=== PATIENT | female | born 1965 | race Caucasian/White ===

== ENCOUNTER → 2016-11-10 | Outpatient (CLI) | payer MEDICAID ==
[~2016-11-10] MED LIST: ALBU2.5V13 NEB; ALPR0.5T6 PO; AMLO5TAB4 PO; BACL10TA PO; BENZ1LOZ37 MM; CITA40TA5 PO; CLOB15OI TP; ESZO1TAB6 PO; ESZO3TAB9 PO; GADOBUTROL 7.5 MMOL/7.5 ML VIAL IV ONE; LISI1TAB3 PO; NICO1PAT21 TD; OXYB5TAB7 PO; OXYC30TA PO; OXYC30TA64 PO; PREG200C PO; ROFL500T PO
--- NOTE | 2016-11-10 14:22 | KCIC ---
PROCEDURE MRI of the lumbar spine without and with contrast 11/10/2016 HISTORY Chronic low back pain. TECHNIQUE Unenhanced T1 weighted, T2 weighted and inversion recovery sagittal and T1 weighted and T2 weighted axial images of the lumbar spine were obtained. After the intravenous administration of 14 cc of Gadavist, enhanced T1 weighted sagittal and axial images of the lumbar spine were obtained. FINDINGS Comparison study is dated 05/30/2016. Very mild S-shaped curvature of the thoracolumbar spine is seen. Minimal anterolisthesis of L4 in relation to L5 is seen. Degenerative signal changes are seen involving all of the discs of the lower thoracic and throughout the lumbar spine. Degenerative signal changes are seen within the marrow surrounding these discs. The conus medullaris is normal in position and signal characteristics. No area of abnormal contrast enhancement is seen. The patient reports a history of lumbar spine surgery. It is unclear from these images what surgery was performed and at what level. At the T10-11 disc space there is a mild generalized disc bulge. Superimposed on this disc bulge is a right paracentral focal disc protrusion. This measures 3 millimeters in AP diameter. Degenerative changes are seen involving the facet joints bilaterally. These findings result in mild right-sided central spinal canal stenosis. The neural foramina are not entirely included on this study. At the T11-12 disc space there is a mild generalized disc bulge. Superimposed on this disc bulge is a right paracentral focal disc protrusion. This measures 2.5 millimeters in AP diameter degenerative changes are seen involving the facet joints bilaterally. These findings efface the anterior CSF without resulting in significant central spinal canal or neural foraminal stenosis. At the T12-L1 disc space there is mild to moderate generalized disc bulge. This is eccentric to the right. Superimposed on the disc bulge is a right paracentral/lateral disc osteophyte complex. This measures 5 millimeters in AP diameter degenerative changes are seen involving the facet joints bilaterally. These findings when combined result in mild to moderate right greater than left central spinal canal stenosis. Mild right neural foraminal stenosis is seen. The left neural foramina is patent. At the L1-2 disc space there is mild to moderate generalized disc bulge. This is eccentric to the right. Degenerative changes are seen involving the facet joints bilaterally. There is prominence of the posterior epidural fat. These findings when combined result in mild to moderate central spinal canal stenosis. Mild bilateral neural foraminal stenosis is seen. At the L2-3 disc space there is mild generalized disc bulge. Degenerative changes are seen involving the facet joints bilaterally. There is mild ligamentum flavum hypertrophy bilaterally. These findings when combined result in mild central spinal canal stenosis. No neural foraminal stenosis is seen. At the L3-4 disc space there is a mild to moderate generalized disc bulge. This is eccentric to the left. Degenerative changes are seen involving the facet joints bilaterally. There is mild ligamentum flavum hypertrophy. These findings when combined result in mild left greater than right central spinal canal stenosis. Mild left greater than right neural foraminal stenosis is seen. At the L4-5 disc space there is mild to moderate generalized disc bulge. Degenerative changes are seen involve the facet joints bilaterally. There is moderate ligamentum flavum hypertrophy bilaterally. There is prominence of the posterior epidural fat. These findings when combined result in mild to moderate central spinal canal stenosis. Very mild bilateral neural foraminal stenosis is seen. At the L5-S1 disc space there is a mild generalized disc bulge. Degenerative changes are seen involving the facet joints bilaterally. These findings do not result in significant central spinal canal or neural foraminal stenosis. Since the previous examination there has been no significant interval change. IMPRESSION Degenerative changes are seen throughout the lower thoracic and throughout the lumbar spine. These findings result in multilevel central spinal canal and neural foraminal stenosis of varying severity as outlined above. Electronically signed by: Alvarez Lopez MD (Nov 10, 2016 14:21:27)
== END | disposition home or self-care (01) ==
LOC: KCIC MRI 10:59
DX: M47.896 Other spondylosis, lumbar region (principal)
CPT/HCPCS: 72158; A9585